=== PATIENT | female | born 1995 | race Two or more races ===

== ENCOUNTER → 2016-11-04 | Outpatient (CLI) | payer OTHER ==
--- NOTE | 2016-11-07 07:33 | US ---
HISTORY: Intrauterine , age Study: Ob sonogram Comparison: None Technique: Multiple grayscale sonographic images were obtained. Findings: There is a single intrauterine gestation in vertex presentation. The placenta is anterior. hea rt rate 146 beats per minute. Amniotic fluid volume appears visually normal. Four-chamber heart, stomach, bladder, bilateral kidneys, bilateral upper and lower extremities, feta l facial features were identified. 3 vessel cord and cord insertion was identified. The spine appear s intact. Biparietal diameter 5.96 centimeters corresponding to 24 weeks 2 days. Head circumference 22.18 cent imeters corresponding to 24 weeks 1 day. Abdominal circumference 19.26 centimeters corresponding to 24 weeks. Femur length 4.65 centimeters corresponding to 25 weeks. IMPRESSION: Single viable intrauterine gestation 24 weeks 3 days +/-1 week gestational age with an estimated aram e of delivery February 21, 2017 Reported By:
== END ==
LOC: RAD 15:22
PROVIDERS: ATTEND Obstetrics & Gynecology Obstetrics
DX: Z34.82 Encounter for supervision of other normal pregnancy, second trimester (principal); Z3A.24 24 weeks gestation of pregnancy